=== PATIENT | female | born 1990 | race African-American/Black ===

== ENCOUNTER 2017-05-08 13:02 | Emergency (ER) | payer MEDICAID ==
[~2017-05-08] VITALS: Ht 152.4 cm; Wt 74.8 kg
[2017-05-08 13:55] VITALS: BP 157/81
--- NOTE | 2017-05-08 14:09 | NUR ---
PT PRESENTS TO ER W/C/O COUGH AND SORE THROAT X2 DAYS. HX ASTHMA. DENIES N/V/D; SKIN IS PINK/WARM/DRY; AAOX4 WITH EVEN AND STEADY GAIT; LUNGS CLEAR BL; HR EVEN AND REGULAR; PT DENIES ANY FEVER, CP, OR SOB AT THIS TIME; PATIENT STATES PAIN OF 8/10 AT THIS TIME; VSS; PATIENT POSITIONED FOR COMFORT; HOB ELEVATED; BEDRAILS UP X2; BED DOWN. ER MD MADE AWARE OF PT STATUS.
[2017-05-08] MEDS ORDERED: ALBUTEROL SULFATE/IPRATROPIU 3 ML SOL IH ONE (14:20)
[2017-05-08 15:05] VITALS: BP 136/76
--- NOTE | 2017-05-08 15:05 | NUR ---
Note aaronforrest in EDM - 05/08/17 at 1507 by ALFA Patient discharged with v/s stable. Written and verbal after care instructions given and explained to parent/guardian. Parent/Guardian verbalized understanding of instructions. Carried with by parent. All questions addressed prior to discharge. ID band removed. Parent/Guardian advised to follow up with PMD. Rx of HELLEN given. Parent/Guardian educated on indication of medication including possible reaction and side effects. Opportunity to ask questions provided and answered.
--- NOTE | 2017-05-08 15:05 | NUR ---
Patient discharged with v/s stable. Written and verbal after care instructions given and explained. Patient alert, oriented and verbalized understanding of instructions. Ambulatory with steady gait. All questions addressed prior to discharge. ID band removed. Patient advised to follow up with PMD. Rx of SINGULAIR, AZITHROMYCIN, ADVAIR, PROMETHAZINE, PREDNISONE given. Patient educated on indication of medication including possible reaction and side effects. Opportunity to ask questions provided and answered.
== END 2017-05-08 15:05 | disposition home or self-care (01) ==
LOC: MED 13:02
DX: J45.901 Unspecified asthma with (acute) exacerbation (principal); J20.9 Acute bronchitis, unspecified; H66.91 Otitis media, unspecified, right ear; J32.9 Chronic sinusitis, unspecified
CPT/HCPCS: 94640; 99283; J7620

== ENCOUNTER 2017-07-27 16:09 | Emergency (ER) | payer MEDICAID ==
[~2017-07-27] VITALS: Ht 152.4 cm; Wt 72.6 kg
[2017-07-27 16:36] VITALS: BP 117/75
--- NOTE | 2017-07-27 17:27 | NUR ---
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 DENIES CP/FEVERS/CHILLS. RESP EVEN AND UNLABORED, ON RA @99%, JIM LS-CLR.
--- NOTE | 2017-07-27 18:12 | NUR ---
DR GAMEZ AT BEDSIDE FOR EXAM
[2017-07-27 18:45] VITALS: BP 117/75
== END 2017-07-27 18:45 | disposition home or self-care (01) ==
LOC: MED 16:09
DX: R05 Cough (principal); R06.02 Shortness of breath; J45.909 Unspecified asthma, uncomplicated
CPT/HCPCS: 99283

== ENCOUNTER 2018-04-14 12:18 | Emergency (ER) | payer MEDICAID ==
[~2018-04-14] VITALS: Ht 157.5 cm; Wt 78.0 kg
[2018-04-14 12:30] VITALS: BP 121/74
--- NOTE | 2018-04-14 13:15 | NUR ---
PATIENT IN BED 7. PATIENT PRESENTS TO ED WITH C/O LEFT FOREARM PAIN WITH PALPABLE MASS . PT STATES HER PAIN STARTED YESTERDAY . DENIES N/V/D; SKIN IS PINK/WARM/DRY; AAOX4 WITH EVEN AND STEADY GAIT; LUNGS CLEAR BL; HR EVEN AND REGULAR; PT DENIES ANY FEVER, CP, SOB, OR COUGH AT THIS TIME; PATIENT STATES PAIN OF 8/10 AT THIS TIME; VSS; PATIENT POSITIONED FOR COMFORT; HOB ELEVATED; BEDRAILS UP X2; BED DOWN. ER MD MADE AWARE OF PT STATUS.
--- NOTE | 2018-04-14 13:45 | NUR ---
PATIENT ELOPED FROM FACILITY. ER MD AND CHARGE NURSE MADE AWARE.
== END 2018-04-14 13:45 | disposition left against medical advice (07) ==
LOC: MED 12:18
DX: R22.32 Localized swelling, mass and lump, left upper limb (principal); R42 Dizziness and giddiness; R53.83 Other fatigue; J45.909 Unspecified asthma, uncomplicated
CPT/HCPCS: 99281

== ENCOUNTER 2018-08-22 10:35 | Emergency (ER) | payer MEDICAID ==
[~2018-08-22] VITALS: Ht 154.9 cm; Wt 72.6 kg
[2018-08-22 10:50] VITALS: BP 119/80
--- NOTE | 2018-08-22 10:50 | NUR ---
PATIENT TAKEN TO BED #12 VIA WHEEL CHAIR
--- NOTE | 2018-08-22 11:00 | NUR ---
Pt presented to the ED with the chief c/o sore throat, cough and chest discomfort for 2 days. reports fever for 3 days. Taking motrin w/o relief. Has fever of 100.4 degree F. Pt reports nauseated. Vomit X3. Denies any diarrhea. Pt was seen in [facility] last week, Dx with bronchitis. Taking albuterol. Pleced pt on monitor. SPO2 98 % in room air. States generalized pain of 10/10. ER MD aware.
[2018-08-22] MEDS ORDERED: DEXAMETHASONE 10 MG/ML VIAL IM ONE (11:20)
[2018-08-22] MEDS ORDERED: cefTRIAXone 1,000 MG in LIDOCAINE 1% ***ER ONLY *** 2.1 ML IM ONE (11:20)
[2018-08-22] MEDS ORDERED: ALBUTEROL SULFATE/IPRATROPIU 3 ML SOL IH ONE (11:20)
[2018-08-22] MEDS ORDERED: cefTRIAXone 1,000 MG VIAL ONE (11:39)
[2018-08-22] MEDS ORDERED: LIDOCAINE MPF 1% 5mL VIAL ONE (11:46)
--- NOTE | 2018-08-22 12:57 | NUR ---
PT APPEARS TO BE RELAXED, SLEEPING IN BED AT THIS TIME. VS WNL. BREATHING NORMALLY.
--- NOTE | 2018-08-22 13:21 | NUR ---
ER MD AWARE ABOUT FEVER. PT CAN BE DISCHARGED PER DOCTOR.
--- NOTE | 2018-08-22 13:38 | NUR ---
Patient discharged with v/s stable. Written and verbal after care instructions given and explained. Patient alert, oriented and verbalized understanding of instructions. Ambulatory with steady gait. All questions addressed prior to discharge. ID band removed. Patient advised to follow up with PMD. Rx of MONISTATE, PROMETHAZINE, PREDNISONE AND AZITHROMYCIN given. Patient educated on indication of medication including possible reaction and side effects. Opportunity to ask questions provided and answered.
[2018-08-22 13:44] VITALS: BP 121/83
== END 2018-08-22 13:38 | disposition home or self-care (01) ==
LOC: MED 10:35
DX: J03.90 Acute tonsillitis, unspecified (principal); J45.909 Unspecified asthma, uncomplicated; R07.89 Other chest pain; R11.2 Nausea with vomiting, unspecified
CPT/HCPCS: 71045; 81025; 87804; 94640; 94760; 96372; 99284; J0696; J1100; J2001; J7620; Q0092

== ENCOUNTER 2018-11-12 21:01 | Emergency (ER) | payer MEDICAID ==
[~2018-11-12] VITALS: Ht 152.4 cm; Wt 74.8 kg
[2018-11-12 21:18] VITALS: BP 119/80
--- NOTE | 2018-11-12 21:28 | NUR ---
PT AMBULATED BACK TO [facility]
--- NOTE | 2018-11-12 21:49 | NUR ---
PT MOVED TO ER BED 4
--- NOTE | 2018-11-12 22:10 | NUR ---
PT C/O RASH ON BREAST, BACK TODAY. PT STATES RASH ITCHES AND HURTS; STATES 5/10 PAIN W/ ITCHING. NO REDNESS, SWELLING OR DISCHARGE, +DRY PATCH. SAFETY PRECAUTIONS IN PLACE. [facility]
--- NOTE | 2018-11-12 22:10 | NUR ---
Dr. Colon evaluating patient at bedside.
--- NOTE | 2018-11-12 22:15 | NUR ---
FEMALE HOME CARE ASSOCIATE BY RN FOR EXAMINATION BY DR. DURANT, OF RASH TO BREAT AREA.PT TOLERATED WELL.
[2018-11-12 22:38] LABS: BASOPHILS % (AUTO) 0.1 % (0.0-2.0); EOSINOPHILS # (AUTO) 0.4 K/uL (0-0.4); EOSINOPHILS % (AUTO) 4.8 % (0.0-4.0); HEMATOCRIT 40.6 % (36-48); HEMOGLOBIN 13.1 g/dL (12.0-16.0); LYMPHOCYTES # (AUTO) 2.1 K/uL (2.5-16.5); LYMPHOCYTES % (AUTO) 23.1 % (20.5-51.1); MEAN CORPUSCULAR HEMOGLOBIN 27 pg (27-31); MEAN CORPUSCULAR HGB CONC 32 g/dL (33-37); MEAN CORPUSCULAR VOLUME 84.8 fL (80-94); MONOCYTES # (AUTO) 0.6 K/uL (0.8-1.0); MONOCYTES % (AUTO) 6.2 % (1.7-9.3); NEUTROPHILS % (AUTO) 65.8 % (42.2-75.2); PLATELET COUNT (AUTO) 209 K/uL (140-450); RED BLOOD CELL COUNT(AUTO) 4.79 MIL/uL (4.20-5.40); RED CELL DISTRIBUTION WIDTH 15.5 % (11.6-13.7); WHITE BLOOD COUNT (AUTO) 9.1 K/uL (4.8-10.8)
[2018-11-12 22:45] LABS: ANION GAP 8.6 (8-16); CARBON DIOXIDE 28.4 mmol/L (21-32); CREATININE 0.9 mg/dL (0.6-1.3)
[2018-11-12 22:53] LABS: ALBUMIN 3.8 g/dL (3.4-5.0); TOTAL BILIRUBIN 0.6 mg/dL (0.0-1.0)
[2018-11-12 23:26] VITALS: BP 119/80
--- NOTE | 2018-11-12 23:26 | NUR ---
Patient discharged with v/s stable. Written and verbal after care instructions given and explained. Patient alert, oriented and verbalized understanding of instructions. Ambulatory with steady gait. All questions addressed prior to discharge. ID band removed. Patient advised to follow up with PMD. Rx of CLOTRIMAZOLE AND KEFLEX WAS given. Patient educated on indication of medication including possible reaction and side effects. Opportunity to ask questions provided and answered.
== END 2018-11-12 23:26 | disposition home or self-care (01) ==
LOC: MED 21:01
DX: R21 Rash and other nonspecific skin eruption (principal); J45.909 Unspecified asthma, uncomplicated
CPT/HCPCS: 36415; 80053; 85025; 99283

== ENCOUNTER 2019-02-12 20:50 | Emergency (ER) | payer MEDICAID ==
[~2019-02-12] VITALS: Ht 149.9 cm; Wt 74.8 kg
[2019-02-12 20:55] VITALS: BP 123/65
--- NOTE | 2019-02-12 21:03 | NUR ---
TO LOBBY A/W BED WITH KEVIN GLOVER
--- NOTE | 2019-02-12 21:56 | NUR ---
28 Y/O FEMALE PRESENTS TO ED WITH C/O LEFT ANKLE/FOOT PAIN X1 DAY. PT STATES SHE WAS AT THE CLUB, CLIMED DOWN FROM A [place] ONTO A COUCH AND ROLLED LEFT ANKLE. 5/10 PAIN. WORSE WITH AMBULATION. VSS. ER MD AWARE. CONTINUE TO MONITOR.
--- NOTE | 2019-02-12 21:56 | NUR ---
PT TO ER BED 5
--- NOTE | 2019-02-12 22:25 | NUR ---
X-Ray at bedside.
[2019-02-12] MEDS: KETOROLAC 60 MG/2 ML VIAL IM ONE (22:42)
--- NOTE | 2019-02-12 23:00 | NUR ---
PT STATES PAIN RELIEF. 08/12 AND TOLLERABLE. CONTINUE TO MONITOR.
--- NOTE | 2019-02-12 23:50 | NUR ---
Dr. Marques examining patient.
[2019-02-13 00:32] VITALS: BP 130/71
--- NOTE | 2019-02-13 00:32 | NUR ---
DISCHARGE PAPERS GIVEN TO PT. PT STAETS 0/10 PAIN AND IN A HURRTY TO LEAVE ER. RX OF NORCO AND MOTRIN GIVEN. INSTRUCTED TO F/U WITH PCP AND WHEN TO RETURN TO ER. PT VERBALLIZED UNDERSTANDING OF DC INSTRUCTIONS. ALL QUESTIONS ANSWERED. PT AMBULATED IN A FAST WALK OUT OF ER WITH HER TWO BOYS.
== END 2019-02-13 00:32 | disposition home or self-care (01) ==
LOC: MED 20:50
DX: S93.402A Sprain of unspecified ligament of left ankle, initial encounter (principal); J45.909 Unspecified asthma, uncomplicated; Z98.890 Other specified postprocedural states; X58.XXXA Exposure to other specified factors, initial encounter; Y92.89 Other specified places as the place of occurrence of the external cause; Y93.89 Activity, other specified; Y99.8 Other external cause status
CPT/HCPCS: 73610; 96372; 99283; J1885